=== PATIENT | female | born 1995 | race African-American/Black ===

== ENCOUNTER 2018-04-04 15:56 | Emergency (ER) | payer SELFPAY | END 2018-04-04 16:29 | disposition home or self-care (01) | LOC: MADERS 15:56 | DX: J06.9 Acute upper respiratory infection, unspecified (principal); F17.210 Nicotine dependence, cigarettes, uncomplicated | CPT/HCPCS: 99283 ==

== ENCOUNTER 2018-07-29 10:49 | Emergency (ER) | payer MEDICAID, SELFPAY | END 2018-07-29 11:36 | disposition home or self-care (01) | LOC: MADERS 10:49 | DX: K04.7 Periapical abscess without sinus (principal); F17.210 Nicotine dependence, cigarettes, uncomplicated | CPT/HCPCS: 99283 ==

== ENCOUNTER 2018-09-14 18:40 | Emergency (ER) | payer MEDICAID, SELFPAY ==
[~2018-09-14 18:40] MED LIST: Lidocaine 1% 20 ML MDV ONE
[2018-09-14] MEDS ORDERED: Ibuprofen 800 MG TAB ONE (19:11)
--- NOTE | 2018-09-14 19:35 | RAD ---
2 views of the chest: 09/14/2018 COMPARISON: None HISTORY: Fever, cough FINDINGS: Focal area of dense airspace disease noted in the left base posteriorly. Right lung appears clear. No pneumothorax. Heart and mediastinal contours are unremarkable. IMPRESSION: Focal opacity in the left lung base suggests left lower lobe pneumonia. Follow-up imaging following treatment to document resolution advised.
[2018-09-14] MEDS ORDERED: Azithromycin 250 MG TAB ONE (19:40)
[2018-09-14] MEDS ORDERED: Acetaminophen 500 MG TAB ONE (19:40)
[2018-09-14] MEDS ORDERED: cefTRIAXone\\ROCEPHIN 1 GM VIAL ONE (19:40)
== END 2018-09-14 20:05 | disposition home or self-care (01) ==
LOC: MADERS 18:40
DX: J18.9 Pneumonia, unspecified organism (principal); I10 Essential (primary) hypertension; F17.210 Nicotine dependence, cigarettes, uncomplicated
CPT/HCPCS: 36415; 71046; 87804; 96372; J0696; J2001

== ENCOUNTER 2019-09-29 07:14 | Emergency (ER) | payer MEDICAID, SELFPAY ==
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
== END 2019-09-29 08:40 | disposition home or self-care (01) ==
LOC: MADERS 07:14
DX: S60.211A Contusion of right wrist, initial encounter (principal); F17.210 Nicotine dependence, cigarettes, uncomplicated; V89.2XXA Person injured in unspecified motor-vehicle accident, traffic, initial encounter

== ENCOUNTER 2021-01-11 22:44 | Emergency (ER) | payer SELFPAY ==
[~2021-01-11 22:44] MED LIST changes: +Iopamidol 370 76% 100 ML VIAL ONE; -Lidocaine 1% 20 ML MDV ONE
[2021-01-12] MEDS ORDERED: Simethicone Chewable 80 MG TAB ONE (00:45)
[2021-01-12] MEDS ORDERED: Dicyclomine 10 MG CAP ONE ×2 (00:47→00:48)
[2021-01-12] MEDS ORDERED: Lidocaine Viscous Sol 2% 15 ml UD Cup ONE (00:47)
[2021-01-12] MEDS ORDERED: Mag-Al Plus 1200 MG/1200 MG/120 MG/30 ML UDCUP ONE (00:47)
[2021-01-12 01:12] LABS: BHCG - Serum Negative (NEGATIVE); Pregs Control Background? CLEAR/WHITE (CLR/WHITE); Pregs Control Bar Appear? YES (CONTROL BAR)
[2021-01-12 01:15] LABS: ALT (SGPT) 14 U/L (8-55); AST (SGOT) 13 U/L (5-34); Albumin 3.8 g/dL (3.5-5.0); Alkaline Phosphatase 53 U/L (40-110); Anion Gap 14 mmol/L (10-20); BUN (Urea Nitrogen) 6 mg/dL (7.0-18.7); Bilirubin, Total 0.5 mg/dL (0.2-1.2); Calc. Creatinine Clearance 0 mL/min (70-130); Calcium 9.7 mg/dL (7.8-10.44); Carbon Dioxide 23 mmol/L (22-29); Chloride 104 mmol/L (98-107); Glucose 92 mg/dL (70-105); Lipase 6 U/L (8-78); Potassium 3.4 mmol/L (3.5-5.1); Protein, Total 7.8 g/dL (6.0-8.3); Sodium 138 mmol/L (136-145)
[2021-01-12 01:21] LABS: #Basophils 0.1 thou/uL (0.0-0.2); #Lymphocytes 2.9 thou/uL (1.20-3.40); #Neutrophils 10.8 thou/uL (1.40-6.50); %Basophils 0.7 % (0.0-1.0); %Eosinophils 0.2 % (0.0-10.0); %Lymphocytes 19.6 % (21.0-51.0); %Monocytes 6.9 % (0.0-10.0); %Neutrophils 72.6 % (42.0-75.0); Anisocytosis SLIGHT = 6-15 cells (100X) (0-5/hpf); Hemoglobin 10.2 g/dL (12.0-16.0); Hypochromia MODERATE=16-30 cells (100X) (0-5/hpf); Mean Corpuscular HGB CONC 27.9 g/dL (32.0-36.0); Mean Corpuscular Hemoglobin 17.3 pg (27.0-31.0); Mean Corpuscular Volume 62.1 fL (78.0-98.0); Mean Platelet Volume 9.7 fL (7.4-10.4); Microcytosis SLIGHT = 6-15 cells (100X) (0-5/hpf); Ovalocytes SLIGHT = 2-5 cells (100X) (0-1/hpf); Platelet Count 384 thou/uL (130-400); Platelet Morphology Comment Appears Adequate; Poikilocytosis SLIGHT = 6-15 cells (100X) (0-5/hpf); RBC Distribution Width 16.8 % (11.5-14.5); Red Blood Cell (RBC) Count 5.86 mill/uL (4.20-5.40); Target Cells SLIGHT = 2-5 cells (100X) (0-1/hpf); Tear Drops SLIGHT = 2-5 cells (100X) (0-1/hpf); White Blood Cell (WBC) Count 14.9 thou/uL (4.8-10.8)
== END 2021-01-12 03:17 | disposition home or self-care (01) ==
LOC: MADERS 22:44
DX: R10.84 Generalized abdominal pain (principal); F17.210 Nicotine dependence, cigarettes, uncomplicated
CPT/HCPCS: 36415; 74177; 80053; 83690; 84703; 85025; 85060; 96372; J0500; Q9967

== ENCOUNTER 2022-05-09 18:08 | Emergency (ER) | payer BC, SELFPAY ==
[2022-05-09] MEDS ORDERED: Ibuprofen 800 MG TAB ONE (18:24)
[2022-05-09] MEDS ORDERED: Acetaminophen 500 MG TAB ONE (18:24)
== END 2022-05-09 19:20 | disposition home or self-care (01) ==
LOC: MADERS 18:08
DX: M25.512 Pain in left shoulder (principal); R07.9 Chest pain, unspecified; F17.290 Nicotine dependence, other tobacco product, uncomplicated; W19.XXXA Unspecified fall, initial encounter
CPT/HCPCS: 71046

== ENCOUNTER 2023-01-12 03:23 | Emergency (ER) | payer SELFPAY ==
[2023-01-12] MEDS ORDERED: Amoxicillin/Potassium Clav 875 MG TAB ONE (04:44)
[2023-01-12] MEDS ORDERED: Ketorolac Tromethamine 30 MG/ML VIAL ONE (04:44)
[2023-01-12 04:56] LABS: Pregnancy Test - Urine (BHCG) Negative (Negative); Pregu Control Background? CLEAR/WHITE (CLR/WHITE); Pregu Control Bar Appear? YES (CONTROL BAR); Specific Gravity 1.035 (1.002-1.036)
== END 2023-01-12 05:05 | disposition home or self-care (01) ==
LOC: MADERS 03:23
DX: K03.81 Cracked tooth (principal); F17.290 Nicotine dependence, other tobacco product, uncomplicated
CPT/HCPCS: 81025; 96372; 99283; J1885